=== PATIENT | male | born 1985 | race Caucasian/White ===

== ENCOUNTER 2018-07-17 01:58 | Emergency (ER) | payer BC, OTHER ==
[2018-07-17] MEDS ORDERED: CETIRIZINE 10 MG TABLET PO ONE (02:47)
[2018-07-17] MEDS ORDERED: BENZONATATE 100 MG CAPSULE PO ONE (02:47)
--- NOTE | 2018-07-17 02:50 | ER Document Report ---
HPI - HPI Time Seen by Provider: 07/17/18 02:38 Pain Level: 4 Context: Patient is a 32-year-old male who presents to the emergency department with a chief complaint of a cough, runny nose, fever and flulike symptoms. His symptoms started 5 days ago. He has been taking Tylenol flu medication. He states that he has not had any relief of his symptoms from the Tylenol flu. He also has associated ear pain. He says that once he starts coughing, he is unable to stop. - EENT EENT: REPORTS: Ear Pain, Nasal Drainage-Clear - RESPIRATORY Respiratory: REPORTS: Trouble Breathing, Coughing - GASTROINTESTINAL Gastrointestinal: REPORTS: Nausea, Diarrhea. DENIES: Abdominal Pain - MUSCULOSKELETAL Musculoskeletal: DENIES: Extremity pain - DERM Skin Color: Normal Past Medical History - General Information source: Patient - Social History Smoking Status: Never Smoker Frequency of alcohol use: None Drug Abuse: None Family History: Reviewed & Not Pertinent Vertical Provider Document - INFECTION CONTROL TRAVEL OUTSIDE OF THE [place] IN LAST 30 DAYS: No - HEENT HEENT: Atraumatic, Normocephalic - RESPIRATORY Respiratory: Breath Sounds Normal, No Respiratory Distress - CARDIOVASCULAR Cardiovascular: Regular Rate, Regular Rhythm - GI/ABDOMEN Gastrointestinal: Abdomen Soft - MUSCULOSKELETAL/EXTREMETIES Musculoskeletal/Extremeties: FROM - NEURO Level of Consciousness: Awake, Alert, Appropriate - DERM Integumentary: Warm, Dry Course - Re-evaluation Re-evalutation: 07/17/18 02:52 Due to the length of his symptoms, he will be sent for a chest x-ray to rule out pneumonia. He also be tested for influenza. He will be treated with Tessalon Perles and cetirizine to help with his symptoms. 07/17/18 03:26 Patient's chest x-ray is normal. Influenza screen is negative. - Vital Signs Vital signs: Temp Pulse Resp BP Pulse Ox 98.5 F 82 16 149/76 H 97 07/17/18 02:15 07/17/18 02:15 07/17/18 02:15 07/17/18 02:15 07/17/18 02:15 Discharge - Discharge Clinical Impression: Runny nose, Cough Upper respiratory infection Qualifiers: URI type: unspecified URI Qualified Code(s): J06.9 - Acute upper respiratory infection, unspecified Condition: Stable Disposition: HOME, SELF-CARE Instructions: Upper Respiratory Illness ([facility]) Additional Instructions: You were seen today in the emergency department for a cough. You have a upper respiratory viral infection. Viral infections can last 7-10 days. You have been given Tessalon Perles, a medication for your cough. You have been prescribed provided a prescription for this medication. You may take Zyrtec (cetirizine) every day for your runny nose. You can also take ibuprofen 600 mg and acetaminophen 1000 mg every 6 hours as needed for pain or fever. If you develop a fever greater than 100.4 F, are unable to breathe, develop shortness of breath, or have any symptoms that are worrisome to you, please return to the emergency department. Prescriptions: Benzonatate [Tessalon Perles 100 mg Capsule] 100 mg PO Q8HP PRN #40 capsule PRN Reason: Forms: Return to Work
[2018-07-17 03:22] LABS: A TYPE INFLUENZA AG NEGATIVE (NEGATIVE); B INFLUENZA AG NEGATIVE (NEGATIVE)
--- NOTE | 2018-07-17 03:25 | RADIOLOGY REPORT (SQ) ---
CLINICAL HISTORY: cough x5 days COMPARISON: None. TECHNIQUE: XR CHEST 1 VIEW 07/17/2018 2:47 AM MEETING SPECIALIST FINDINGS: Cardiac silhouette is normal in size. Lungs are clear without consolidation, atelectasis, mass or edema. There is no pleural effusion. There is no pneumothorax. There are no acute osseous findings. IMPRESSION: Clear lungs.
[2018-07-17 04:09] VITALS: BP 135/86
== END 2018-07-17 04:05 | disposition home or self-care (01) ==
LOC: ER 01:58
DX: J06.9 Acute upper respiratory infection, unspecified (principal); R05 Cough; R50.9 Fever, unspecified; R09.89 Other specified symptoms and signs involving the circulatory and respiratory systems; H92.09 Otalgia, unspecified ear; R11.0 Nausea; R19.7 Diarrhea, unspecified; R06.00 Dyspnea, unspecified
CPT/HCPCS: 71045; 87804; 99283